=== PATIENT | female | born 1975 | race Two or more races ===

== ENCOUNTER 2024-12-25 16:18 | Emergency (ER) | payer MEDICAID, SELFPAY ==
[2024-12-25 16:39] VITALS: PULSE 102; RESP 18; O2SAT 98
[2024-12-25 16:50] VITALS: BP 131/81; PULSE 70; RESP 20; TEMP 36.9; O2SAT 98; BMI 30.7
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
--- NOTE | 2024-12-25 16:56 | XR_ITS ---
Examination: CT cervical spine without contrast 2-D sagittal reconstructions 2-D coronal reconstructions 3-D reconstructions. Exam date and time:Rosangela the sagittal plane December 25, 2024, 1735 hrs. Indications: CTDI:vol (mGy) 15.7 DLP: (mGycm) 355 Technique: Multiple 2 mm axial sections of the cervical spine have been obtained. The coronal and sagittal reconstructions have been obtained. 3-D reconstructions have been obtained. Low dose protocols were performed. One or more of the following dose reduction techniques were used; automated exposure control, adjustment of the mA and/or KV according to patient size, use of iterative reconstruction technique. Findings: Axial sections demonstrate intact base of the skull. C1 exhibit satisfactory relationship to the odontoid. No acute cervical vertebral body fracture seen. Alignment posterior spinous processes satisfactory. Impression: No acute cervical fracture.
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
--- NOTE | 2024-12-25 18:20 | PC.NURSE ---
SPOKE W/ VALORIE IN ULTRASOUND TO WHEN SHE WILL GET PT. SHE WILL COME GET PT IN THE NEXT 5-10 MINUTES. GAVE PT WATER TO DRINK SO SHE HAS A FULL BLADDER.
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
[2024-12-25 19:15] VITALS: BP 119/72; PULSE 64; RESP 19; TEMP 36.8; O2SAT 98
[2024-12-25] MEDS: KETOROLAC INJ 60 MG/2 ML VIAL 30 MG IM (19:35)
== END 2024-12-25 19:50 | disposition home or self-care (01) ==
PROVIDERS: Emergency Provider Family Medicine; PCP Family Medicine
DX: S50.12XA Contusion of left forearm, initial encounter (principal); S60.222A Contusion of left hand, initial encounter; S80.02XA Contusion of left knee, initial encounter; S29.9XXA Unspecified injury of thorax, initial encounter; S19.9XXA Unspecified injury of neck, initial encounter; S09.90XA Unspecified injury of head, initial encounter; V43.52XA Car driver injured in collision with other type car in traffic accident, initial encounter
CPT/HCPCS: 70450; 71045; 72125; 73090; 73130; 73562; 96372; 99284; J1885